=== PATIENT | female | born 1990 | race Two or more races ===

== ENCOUNTER 2018-02-13 04:17 | Inpatient (IN) | payer OTHER, SELFPAY ==
[2018-02-13] MEDS ORDERED: METHYLERGONOVINE 0.2MG/ML AMP IM PRN ×2 (04:26→14:39)
[2018-02-13] MEDS ORDERED: CARBOPROST TROME 250 MCG/ML IM PRN ×2 (04:26→14:39)
[2018-02-13] MEDS ORDERED: Ringers Lactate 1,000 ML IV PRN (04:26)
[2018-02-13] MEDS ORDERED: MIDAZOLAM HCL 2 MG/2 ML INJ IV PRN ×2 (04:26→14:40)
[2018-02-13] MEDS ORDERED: BUTORPHANOL 1 MG/ML INJ IV PRN (04:26)
[2018-02-13] MEDS ORDERED: PROMETHAZINE 25 MG/ML VIAL IM PRN (04:26)
[2018-02-13] MEDS ORDERED: MEPERIDINE HCL 25 MG/0.5 ML IV PRN ×2 (04:26→14:39)
[2018-02-13] MEDS ORDERED: PENICILLIN 5 MU in NA CHLORIDE 0.9% 100 ML IV ONE (04:29)
[2018-02-13] MEDS ORDERED: OXYTOCIN/LR 20 UNIT/1,000 ML BAG IV ONE (04:45)
[2018-02-13] MEDS ORDERED: PENICILLIN G POT 5 MU/100 ML BAG IV ONE (04:45)
[2018-02-13] MEDS ORDERED: PENICILLIN 2.5 MU in NA CHLORIDE 0.9% 100 ML IV SCH (05:00)
[2018-02-13] MEDS ORDERED: OXYTOCIN/LR 20 UNITS/1,000 ML BAG IV SCH (05:00)
[2018-02-13] MEDS ORDERED: Ringers Lactate 1,000 ML IV SCH (05:00)
[2018-02-13 05:03] LABS: RPR Titer ND
[2018-02-13 05:07] LABS: Absolute Lymphocytes (CBC) 2.6 K/uL (0.7-4.9); Absolute Monocytes 0.8 K/uL (0.1-1.3); Absolute Neutrophil 6.3 K/uL (1.8-8.0); Basophils % 0.4 % (0-1.3); Eosinophils % 1.3 % (0-4.4); Hematocrit 38.1 % (36.0-45.0); MCH 31.7 pg (27.0-35.0); MCV 91.4 fL (80-100); MPV 8.7 fL (7.6-11.3); Monocytes % 8.4 % (3.3-12.3); RBC Red Blood Cell Count 4.17 M/uL (3.86-4.86)
[2018-02-13 05:08] LABS: Urine Appearance CLEAR; Urine Bilirubin NEGATIVE (NEG); Urine Blood TRACE (NEG); Urine Color YELLOW; Urine Glucose NEGATIVE (NEG); Urine Protein NEGATIVE (NEG); Urine Specific Gravity 1.015 (1.005-1.030); Urine Urobilinogen 0.2 mg/dL (0.2-1.0); Urine pH 6.5 (5.0-7.0)
[2018-02-13 05:11] VITALS: BMI 27.8
[2018-02-13 05:14] LABS: Urine Microscopic Reflex ORDER UMIC
[2018-02-13 05:52] LABS: Urine Bacteria <20 /HPF (<20); Urine Culture Reflex Order NOT NEEDED; Urine RBC NONE SEEN /HPF (NONE SEEN)
[2018-02-13 06:03] LABS: Blood Morphology Comment NOT SEEN (NOT SEEN); Platelet Estimate ADEQ
[2018-02-13] MEDS ORDERED: LIDOCAINE 2% 20 ML MDV IV ONE (10:28)
[2018-02-13] MEDS ORDERED: ACETAMINOPHEN 500 MG TAB PO PRN (19:30)
[2018-02-13] MEDS ORDERED: IBUPROFEN 200 MG TAB PO PRN (19:30)
[2018-02-13] MEDS ORDERED: DIPHENHYDRAMINE 25 MG TAB/CAP PO PRN (19:30)
[2018-02-13] MEDS ORDERED: DOCUSATE NA/SENNA CONC 1 TAB PO PRN (19:30)
[2018-02-13] MEDS ORDERED: BISACODYL 10 MG RECTAL SUPP RECT PRN (19:30)
[2018-02-13] MEDS ORDERED: Oxycodone HCl/Acetaminophen 1 TAB TAB PO PRN ×2 (19:30)
[2018-02-13] MEDS ORDERED: OXYTOCIN/LR 20 UNIT/1,000 ML BAG IV SCH (20:00)
[2018-02-13 23:56] LABS: RPR (Rapid Plasma Reagin) NON-REACT (NON-REACT)
--- NOTE | 2018-02-14 02:59 | DS ---
Hospital Course: Michaelle Wagner, a 27-year-old, primigravida, 39 weeks, followed antepartum without complications, Rh positive, immune to Rubella. Positive beta strep screen. 2.5 cm on admission. R upture of membranes, clear fluid. The patient went into a more active labor pattern. When she got t o 5 cm, she went to 9, then hung up for about an hour, and then went to complete. An hour and a half second stage, very effective pushing. The patient was then delivered of a 7-pound, 4-ounce female. Apgars 9 and 9. Second-degree laceration as well as a first-degree right labia minora laceration, a ll sutured with 2-0 chromic under local infiltration. Soriano delivery of the placenta, which was ins pected and noted to be intact and normal. 350 to 400 cc blood loss. The patient was strep positive, received 4 doses of penicillin during the labor. Tolerated all procedures well, went natural throug hout. Final Diagnoses: Term intrauterine , vaginal delivery, penicillin prophylaxis. NEO/YULIA Voice ID: [id number] Report ID: [id number]
--- NOTE | 2018-02-14 09:43 | PN ---
Patient went from 5 to 9 cm. She says her pain went from the back to the front, so I think the baby is rotated. Put a scalp electrode on as we are getting some head compression. I think that she shou ld go to complete fairly soon, and then begin pushing. Doing quite well, still with breathing techni ques. No medicines given to this point. NEO/YULIA Voice ID: [id number] Report ID: [id number]
--- NOTE | 2018-02-14 09:44 | PN ---
Michaelle Wagner' baby is about +1 station but there were some caput and molding. She is pushing but she has been pushing for half an hour, is making no progress thus far. Baby looks very good on the m onitor. She says she still has energy and wishes to continue to push. The baby is too high for forc eps or even vacuum extraction attempt at this point. If she can bring the baby down to a lower posit ion within the next half hour to an hour, possibly we will have to do a . She is aware and a grees. 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 NEO/YULIA Voice ID: [id number] Report ID: [id number]
--- NOTE | 2018-02-14 16:07 | DS ---
Hospital Course: A 27-year-old, primigravida, 39 weeks gestation, delivered a 7 pounds 4 ounce femal e. Apgars 9 and 9. After 1-1/2 hour second stage. Second degree midline laceration as well as firs t the right labia minora laceration, all sutured with 2-0 chromic under local infiltration. Bo gonzalez elivery of the placenta. Estimated blood loss 350-400 cc. Penicillin prophylaxis x4 during the labo r. Rh positive, immune to Rubella. She has had her Tdap immunization. afebrile, ambulat ing, and voiding. Lochia is normal. The patient expressed a desire to go home late this evening if pediatrics lets the baby go home, we will let her go home as well. Otherwise, tomorrow morning 7 to 9 a.m. She requests no medicines for analgesia. She is taking Tylenol. Full post and discha rge instructions given. Final Diagnoses: 1.Term intrauterine 39 weeks. 2.Vaginal delivery. 3.Penicillin prophylaxis. NEO/YULIA Voice ID: [id number] Report ID: [id number]
[2018-02-15 02:30] VITALS: BP 130/77; TEMP 97.7
[2018-02-15 03:55] LABS: HBsAG Nonreactive (Nonreactive)
== END 2018-02-14 23:15 | disposition home or self-care (01) | DRG 775 ==
LOC: 2ND-WC 04:17
PROVIDERS: ADMIT Specialist; ATTEND Specialist
PROC: 10E0XZZ Delivery of Products of Conception, External Approach (ICD-10-PCS; principal; 2018-02-13)
PROC: 0KQM0ZZ Repair Perineum Muscle, Open Approach (ICD-10-PCS; 2018-02-13)
PROC: 10907ZC Drainage of Amniotic Fluid, Therapeutic from Products of Conception, Via Natural or Artificial Opening (ICD-10-PCS; 2018-02-13)
DX: O70.1 Second degree perineal laceration during delivery (principal); O99.824 Streptococcus B carrier state complicating childbirth; Z37.0 Single live birth; Z3A.39 39 weeks gestation of pregnancy
CPT/HCPCS: 36415; 81003; 81015; 85025; 86592; 86901; 87340; J2175; J2210; J2590

== ENCOUNTER 2019-09-14 04:26 | Inpatient (IN) | payer OTHER, SELFPAY ==
[2019-09-14] MEDS ORDERED: PROMETHAZINE INJ 25 MG/ML AMP IM PRN (04:36)
[2019-09-14] MEDS ORDERED: Ringers Lactate 1,000 ML IV PRN (04:36)
[2019-09-14] MEDS ORDERED: CARBOPROST TROME 250 MCG/ML IM PRN (04:36)
[2019-09-14] MEDS ORDERED: MEPERIDINE HCL 25 MG/0.5 ML IV PRN (04:36)
[2019-09-14] MEDS ORDERED: METHYLERGONOVINE 0.2MG/ML AMP IM PRN (04:36)
[2019-09-14] MEDS ORDERED: BUTORPHANOL 1 MG/ML INJ IV PRN (04:36)
[2019-09-14] MEDS ORDERED: OXYTOCIN/LR 20 UNIT/1,000 ML BAG IV SCH ×2 (05:00→15:00)
[2019-09-14] MEDS ORDERED: Ringers Lactate 1,000 ML IV SCH (05:00)
[2019-09-14 05:13] VITALS: BMI 27.8
[2019-09-14 05:32] LABS: Urine Appearance CLEAR; Urine Bilirubin NEGATIVE (NEG); Urine Blood NEGATIVE (NEG); Urine Color YELLOW; Urine Glucose NEGATIVE (NEG); Urine Protein NEGATIVE (NEG); Urine Specific Gravity 1.015 (1.005-1.030); Urine Urobilinogen 0.2 mg/dL (0.2-1.0)
[2019-09-14 05:35] LABS: Absolute Lymphocytes (CBC) 2.5 K/uL (0.7-4.9); Basophils % 0.4 % (0-1.3); Hematocrit 36.6 % (36.0-45.0); Lymphocytes % 25.7 % (15.3-44.8); MPV 8.8 fL (7.6-11.3)
[2019-09-14 05:46] LABS: Urine Bacteria <20 /HPF (<20); Urine Culture Reflex Order NOT NEEDED; Urine RBC <5 /HPF (NONE SEEN)
[2019-09-14] MEDS ORDERED: CARBOPROST TROME 250 MCG/ML IM ONE (07:38)
[2019-09-14] MEDS ORDERED: METHYLERGONOVINE 0.2MG/ML AMP IM ONE (07:38)
[2019-09-14] MEDS ORDERED: LIDOCAINE 1% MPF 30 ML VIAL ONE (07:39)
[2019-09-14 08:04] LABS: Blood Morphology Comment NOT SEEN (NOT SEEN); Platelet Estimate ADEQ
--- NOTE | 2019-09-14 10:50 | PREOPHP ---
Date of Admission: 09/14/2019 28-year-old 2, para 1, 39 weeks today, followed antepartum without complications. Rh positiv e, immune to Rubella. Negative beta strep screen, 3 cm, eddi regularly. FHTs normal and reac tive. Labor talk given. Rupture of membranes. Patient anticipates natural childbirth. Anticipate delivery sometime later today. NEO/YULIA Voice ID: [id number]
--- NOTE | 2019-09-14 14:02 | PN ---
Patient is about 9.5 cm, 0 station. She is beginning to feel the urge to push. It should not be too long and will begin pushing. NEO/YULIA Voice ID: [id number] Report ID: [id number]
[2019-09-14] MEDS ORDERED: Oxycodone HCl/Acetaminophen 1 TAB TAB PO PRN ×2 (14:40)
[2019-09-14] MEDS ORDERED: IBUPROFEN 600 MG TAB PO PRN (14:40)
[2019-09-14] MEDS ORDERED: METHYLERGONOVINE 0.2 MG TAB PO PRN (14:40)
[2019-09-14] MEDS ORDERED: ACETAMINOPHEN 500 MG TAB PO PRN (14:40)
[2019-09-14] MEDS ORDERED: DIPHENHYDRAMINE 25 MG TAB/CAP PO PRN (14:40)
[2019-09-14] MEDS ORDERED: DOCUSATE NA/SENNA CONC 1 TAB PO PRN (14:40)
[2019-09-14] MEDS ORDERED: BISACODYL 10 MG RECTAL SUPP RECT PRN (14:40)
--- NOTE | 2019-09-14 15:38 | OP ---
Surgeon: Ashu Razo MD 28-year-old 2, para 1, at 39 weeks gestation, followed antepartum without complications. Rh positive, immune to Rubella. Negative beta strep screen at 3 cm this morning. Rupture of membranes, clear fluid. Went natural childbirth the entire way. Second stage of about 25 to 30 minutes, spont aneous vaginal delivery of an estimated 7.5 to 8 pound female, Apgars 9 and 9. Cord harness-type marlin und the shoulders and neck but not completely around the neck. Small first-degree laceration repaire d with 2-0 chromic under local infiltration. Schultze delivery of the placenta, was inspected and no caleb to be intact and normal. Mild uterine hypotonus, 0.2 mg of Methergine IM as well as IV drip Karthik radha and massage. Estimated blood loss 400 to 425 cc. Patient tolerated all procedures well. Final Diagnoses: Term intrauterine at 39 weeks. Spontaneous vaginal delivery, mild uterin e hypotonus. ANGIEC/MODL Voice ID: [id number] Report ID: [id number]
[2019-09-14] MEDS: METHYLERGONOVINE 0.2 MG TAB PO PRN ×2 (18:18→22:30)
[2019-09-14] MEDS ORDERED: METHYLERGONOVINE 0.2 MG TAB PO SCH (18:30)
[2019-09-14 23:32] LABS: RPR (Rapid Plasma Reagin) NON-REACT (NON-REACT)
[2019-09-15] MEDS: METHYLERGONOVINE 0.2 MG TAB PO PRN ×2 (02:35→06:36)
--- NOTE | 2019-09-15 07:54 | DS ---
Hospital Course: Michaelle Wagner, a 28-year-old female, 2, para 1, 40 weeks' gestation, deli cali spontaneously of a female infant, 7 pounds 10 ounces. Apgars 9 and 9. Small first-degree lace ration repaired with 2-0 chromic under local infiltration. Schultze delivery of the placenta, which was inspected and noted to be intact and normal. Mild uterine hypertonus. 400 mL blood loss. 0.2 m g of Methergine, followed by p.o. Methergine. This morning, patient is ambulating, voiding. Lochia is normal. She has had her Tdap immunization with previous and declines another immunizati on at this time. Will be discharged later today to report back to my office in 6 weeks. To report a ny temperature elevation of 100 degrees or greater, severe pain, heavy bleeding, or any other type of abnormalities. Rh positive, immune to Rubella. Negative beta strep screen. Requests no analgesics . 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 Final Diagnoses: 1.Term intrauterine . 2.Vaginal delivery. 3.Mild uterine hypotonus. NEO/YULIA Voice ID: [id number] Report ID: [id number]
[2019-09-15 16:54] VITALS: BP 109/59; TEMP 96.4
[2019-09-16 03:04] LABS: HBsAG Nonreactive (Nonreactive)
== END 2019-09-15 17:30 | disposition home or self-care (01) | DRG 807 ==
LOC: 2ND-WC 04:26
PROVIDERS: ADMIT Specialist; ATTEND Specialist
PROC: 0HQ9XZZ Repair Perineum Skin, External Approach (ICD-10-PCS; principal; 2019-09-14)
PROC: 10E0XZZ Delivery of Products of Conception, External Approach (ICD-10-PCS; 2019-09-14)
DX: O70.0 First degree perineal laceration during delivery (principal); Z37.0 Single live birth; O62.2 Other uterine inertia; O69.81X0 Labor and delivery complicated by cord around neck, without compression, not applicable or unspecified; Z3A.40 40 weeks gestation of pregnancy
CPT/HCPCS: 36415; 81001; 85025; 86592; 86901; 87340; J2210; J2590; J7120